=== PATIENT | female | born 1985 | race African-American/Black ===

== ENCOUNTER 2018-10-13 20:06 | Inpatient (IN) | payer OTHER ==
[~2018-10-13] VITALS: Ht 170.2 cm; Wt 115.2 kg
--- NOTE | 2018-10-13 20:08 | NUR ---
BIBA TO ER BED 5
[2018-10-13] MEDS ORDERED: ZIPRASIDONE MESYLATE 20 MG/ML VIAL IM ONE ×2 (20:20→20:25)
[2018-10-13] MEDS ORDERED: WATER STERILE 10 ML MC ONE (20:25)
[2018-10-13 20:34] LABS: BILIRUBIN,URINE 1+ (NEGATIVE); BLOOD, URINE 2+ (NEGATIVE); COLOR,URINE YELLOW (YELLOW); LEUKOCYTE ESTERASE ,URINE 2+ (NEGATIVE); NITRITE, URINE NEGATIVE (NEGATIVE); UGLUCOSE NEGATIVE (NEGATIVE)
[2018-10-13 20:35] LABS: APPEARANCE,URINE SLIGHTLY CLOUDY (CLEAR)
[2018-10-13 20:37] LABS: BASOPHILS % (AUTO) 0.6 % (0.0-2.0); EOSINOPHILS # (AUTO) 0.1 K/uL (0-0.4); EOSINOPHILS % (AUTO) 1.2 % (0.0-4.0); HEMATOCRIT 39.1 % (36-48); HEMOGLOBIN 12.6 g/dL (12.0-16.0); LYMPHOCYTES # (AUTO) 1.8 K/uL (2.5-16.5); LYMPHOCYTES % (AUTO) 27.3 % (20.5-51.1); MEAN CORPUSCULAR HEMOGLOBIN 27 pg (27-31); MEAN CORPUSCULAR HGB CONC 32 g/dL (33-37); MEAN CORPUSCULAR VOLUME 82.2 fL (80-94); MONOCYTES # (AUTO) 0.4 K/uL (0.8-1.0); MONOCYTES % (AUTO) 5.9 % (1.7-9.3); NEUTROPHILS # (AUTO) 4.2 K/uL (1.8-7.7); PLATELET COUNT (AUTO) 226 K/uL (140-450); RED BLOOD CELL COUNT(AUTO) 4.75 MIL/uL (4.20-5.40); RED CELL DISTRIBUTION WIDTH 14.5 % (11.6-13.7); WHITE BLOOD COUNT (AUTO) 6.5 K/uL (4.8-10.8)
--- NOTE | 2018-10-13 20:38 | NUR ---
PT PRESENTS TO ED BIB EMS FOR 5150 PLACED BY SOFIE TIWARI FOR EXPRESSION TO HARM SELF. UPON ARRIVAL PT SEEN TO BE AGIATED AND VISIBLY UPSET. PT C/O OF ABD PAIN AND VAGINAL BLEEDING. NO VISIBLE BLEEDING NOTED. ABD IS SOFT NON TENDER. NO N/V/D. PT PLACED INTO BED, BELONGINGS TAKEN AND SUICIDE PRECAUTIONS IMPLEMENTED.
[2018-10-13 20:40] LABS: RBC,URINE 11-20 (MOD) /HPF (0-5); TRICHOMONAS,URINE Rare /HPF (None Seen); WBC,URINE 80-100 /HPF (0-5)
[2018-10-13 20:41] LABS: BARBITURATE, URINE NEG. ng/ml (NEG <=200); BENZODIAZEPINE, URINE NEG. ng/mL (NEG <=200); CANNABINOID, URINE POS. ng/mL (NEG <=50); COCAINE, URINE POS. ng/mL (NEG <=300); OPIATE, URINE NEG. ng/mL (NEG <=2000); PHENCYCLIDINE SCREEN,URINE POS. ng/mL (NEG <=25)
[2018-10-13 20:49] LABS: ANION GAP 10.4 (8-16); CARBON DIOXIDE 28.7 mmol/L (21-32); CHLORIDE 107 mmol/L (98-107); GFR ARICAN-AMERICAN 82 mL/min (>90); GLUCOSE 96 mg/dL (74-106); POTASSIUM 3.1 mmol/L (3.5-5.1); SODIUM SERUM 143 mmol/L (136-145); UREA NITROGEN, BLOOD 17 mg/dL (7-18)
[2018-10-13 20:55] LABS: ALBUMIN 3.9 g/dL (3.4-5.0); ASPARTATE AMINOTRANSFERASE 25 U/L (15-37); TOTAL BILIRUBIN 0.8 mg/dL (0.0-1.0)
--- NOTE | 2018-10-13 21:00 | NUR ---
PT PROVIDED WITH SANDIWCH TRAY AND JUICE. 100% COMPLETED.
[2018-10-13 21:01] LABS: ACETAMINOPHEN < 0.5 ug/ml (10-30); SALICYLATE < 2.8 mg/dL (2.8-20.0)
[2018-10-13] MEDS ORDERED: cefTRIAXone 1,000 MG in LIDOCAINE MPF 1% - 5 mL VIAL 2.1 ML IM ONE (21:15)
--- NOTE | 2018-10-13 21:30 | NUR ---
PT SLEEPING AT THIS TIME. VSS. WILL CONTINUE TO MONITOR.
--- NOTE | 2018-10-13 22:24 | NUR ---
Packet has been received will begin working on bed placement.
--- NOTE | 2018-10-13 23:00 | NUR ---
PT SLEEPING. VSS. NO COMPLAINTS AT THIS TIME. WILL CONTINUE TO MONITOR.
--- NOTE | 2018-10-14 00:10 | NUR ---
Called the following facilities for bed placement. [facility], s/w Desiree, they only accept geropsych patients 55 and older. [facility], s/w Anju, they only accept patients 50 and older. [facility], s/w Daria. Packet was faxed and reviewed, at this time they can not accept patient due to DTS/DTO, patient would need a higher acuity unit which has no beds available at this time. Daria says they can try again later today after change of shift. [facility], no beds available, s/w Anju. Not accepting packets at this time. [facility], s/w Amaya, no beds available. [facility], s/w Tex, no beds available. [facility], was transferred [facility], voicemail full and can not leave message. [facility], s/w Charlie, no beds available. [facility], s/w Jocelyn, no beds available. [facility], s/w Aakash, no beds available at this time due to staffing. Will being calling [facility].
--- NOTE | 2018-10-14 01:22 | NUR ---
SLEEPING AT THIS TIME. NO NEW COMPLAINTS. VSS.
--- NOTE | 2018-10-14 01:23 | NUR ---
Called the following facilities for bed placement [facility], s/w Stephen, no beds available. Packet was faxed and they will call next shift to see if patient still needs a bed. [facility], left voice message with Yue. [facility], s/w Veronica, no beds available. Packet/Intake was faxed to [facility]. [facility], s/w Arminda, possible bed, packet was faxed for review.
--- NOTE | 2018-10-14 02:00 | NUR ---
RECEIVED REPORT FROM ASSEMBLER ENGINE. PT IS A&OX4. RESPIRATIONS ARE EQUAL AND UNLABORED. PT IS AGITATED. STATES SHE IS HUNGRY AND WANTS FOOD OR SHE WILL LEAVE. PY YELLING, "I WANT TWO TUNA SANDWICH,PUDDING CRACKERS AND A DINNER TRAY OR I AM LEAVING." NIGHAT COREA WAS CALLED. SITE MEDICAL DIRECTOR WILL BRING HER THE SANDWICHES. THERE ARE NO IV ACCESS AT THIS TIME. PTS SKIN IS INTACT. SAFETY MEASURES IN PLACE.
--- NOTE | 2018-10-14 02:04 | NUR ---
Patient will be admitted to care of DR PINEDA. Admited to M/S. Will go to room 109-B. Belongings list completed. Report to PAT SCHWARZ.
[2018-10-14] MEDS ORDERED: ACETAMINOPHEN 325 MG TAB PO PRN (02:25)
[2018-10-14 02:30] VITALS: BP 121/59
[2018-10-14] MEDS ORDERED: ZIPRASIDONE MESYLATE 20 MG/ML VIAL IM SCH ×2 (02:30→03:00)
[2018-10-14] MEDS ORDERED: POTASSIUM CHLORIDE 10 MEQ TABER PO SCH (03:00)
[2018-10-14] MEDS ORDERED: metroNIDAZOLE 500 MG TAB PO SCH (03:00)
[2018-10-14] MEDS ORDERED: QUEtiapine FUMARATE 100 MG TAB PO SCH ×2 (03:00→21:00)
--- NOTE | 2018-10-14 03:00 | NUR ---
PT REFUSED MEDICATIONS. SHE TOOK HER PILLS THAN SPIT THEM OUT IN THE WATER. BEGAN YELLING, "LEAVE ME ALONE IM NOT GOING TO TAKE THEM. LET ME SLEEP OR IM GOING TO SWING AT YOU." SAFETY MEASURES ARE IN PLACE.
[2018-10-14] MEDS ORDERED: WATER STERILE 10 ML MC ONE (03:01)
[2018-10-14 03:15] LABS: MAGNESIUM 1.9 mg/dL (1.8-2.4); PHOSPHORUS 4.2 mg/dL (2.5-4.9); THYROID STIMULATING HORMONE 1.59 uIU/mL (0.34-3.74)
--- NOTE | 2018-10-14 04:28 | NUR ---
PT SLEEPING IN BED. RESPIRATIONS ARE EQUAL AND UNLABORED. WILL CONTINUE TO MONITOR
--- NOTE | 2018-10-14 04:50 | NUR ---
SPOKE WITH [facility] FROM [facility] . PT HAD BEEN ACCEPTED TO FACILITY BUT REQUIRES TEST PRIOR. WILL REQUEST PREG TEST FROM AND FAX TO [phone].
--- NOTE | 2018-10-14 05:10 | NUR ---
NEGATIVE PREGANANCY TEST FAX TO [facility]. PT WILL BE GOING TO: [facility] [address] [place] [address]. [id number] [address]. BED: WEST , ACCEPTING DOCTOR: REPORT GIVEN TO ELICIA PHONE#
[2018-10-14] MEDS ORDERED: METR500T1 PO (05:37)
[2018-10-14] MEDS ORDERED: POTA10TE30 PO (05:38)
[2018-10-14] MEDS ORDERED: NITR100C15 PO (05:38)
[2018-10-14 05:54] VITALS: BP 121/59
--- NOTE | 2018-10-14 07:05 | NUR ---
ENDORSED TO RN. PT STABLE CONDITION.
--- NOTE | 2018-10-14 07:15 | NUR ---
RECEIVED PT REPORT FROM REVENUE ACCOUNTANT NURSE. PT IS ASLEEP AT THIS TIME, NO S/S OF ACUTE DISTRESS OR SOB. SITTER AT BEDSIDE. PT IS ON ROOM AIR, SKIN INTACT. NO IV SITE NOTED. PER REVENUE ACCOUNTANT NURSE, TRANSPORTATION HAS ALREADY BEEN ARRANGED FOR PT'S TRANSFER TO PSYCH FACILITY THIS MORNING, AND ALL DISCHARGE PAPERWORK HAS BEEN COMPLETED AND SIGNED. WILL CONTINUE TO MONITOR PT.
[2018-10-14] MEDS ORDERED: NITROFURANTOIN 100 MG CAP PO SCH (08:00)
--- NOTE | 2018-10-14 08:05 | NUR ---
PT HAS BEEN PICKED UP BY TRANSPORT SERVICE TO TRANSFER TO [facility] FACILITY. PT IS ALERT AND AWAKE, NO S/S OF DISTRESS. WRIST BAND REMOVED. DISPOSABLE UNDERWEAR AND GOWN GIVEN TO PT, SHE HAS LIMITED CLOTHING. DISCHARGE DOCUMENTS/INSTRUCTIONS GIVEN. PT LEFT WITH ALL HER BELONGINGS IN STABLE CONDITION. Addendum: 10/14/18 at 0922 by Gina Lantigua RN PT REFUSED FLU VACCINE
[2018-10-14] MEDS ORDERED: DIVALPROEX 500 MG TABER PO SCH (09:00)
[2018-10-14] MEDS ORDERED: FLUoxetine 20 MG CAP PO SCH (09:00)
[2018-10-14] MEDS ORDERED: DOCUSATE SODIUM 100 MG GELCAP PO SCH (09:00)
== END 2018-10-14 08:05 | DRG 641 ==
LOC: MED 20:06 → MTU 10-14 01:16
PROVIDERS: ADMIT General Practice; ATTEND General Practice
DX: E87.6 Hypokalemia (principal); N39.0 Urinary tract infection, site not specified; R45.851 Suicidal ideations; A59.9 Trichomoniasis, unspecified; F31.9 Bipolar disorder, unspecified; I10 Essential (primary) hypertension; E11.9 Type 2 diabetes mellitus without complications; B96.89 Other specified bacterial agents as the cause of diseases classified elsewhere; F19.10 Other psychoactive substance abuse, uncomplicated; E66.9 Obesity, unspecified; Z68.39 Body mass index [BMI] 39.0-39.9, adult; Z71.3 Dietary counseling and surveillance
CPT/HCPCS: 36415; 80053; 80305; 81001; 81025; 83036; 83735; 84100; 84443; 84703; 85025; 87086; 96372; 99285; G0480; G0482; J0696; J2001; J3486